=== PATIENT | female | born 1970 | race Caucasian/White ===

== ENCOUNTER 2018-03-09 10:09 | Emergency (ER) | payer OTHER, BC ==
[2018-03-09] MEDS: LORAZEPAM 1 MG TAB PO (11:47)
[2018-03-09] MEDS: predniSONE 20 MG TAB PO (11:47)
== END 2018-03-09 13:45 | disposition home or self-care (01) ==
LOC: FTE 10:09
DX: T78.40XA Allergy, unspecified, initial encounter (principal); F41.9 Anxiety disorder, unspecified
CPT/HCPCS: 99284

== ENCOUNTER 2018-04-11 21:11 | Emergency (ER) | payer OTHER ==
[2018-04-11 23:02] LABS: ADD MAN DIFF? NO
[2018-04-11 23:04] LABS: BASOPHILS % 0.5 % (0.0-2.0); EOSINOPHILS # 0.1 10^3/ul (0.0-0.5); EOSINOPHILS % 2.8 % (0.0-7.0); HEMATOCRIT 35.8 % (37.0-47.0); HEMOGLOBIN 12.8 g/dl (12.0-16.0); LYMPHOCYTES # 1.5 10^3/ul (0.8-2.9); LYMPHOCYTES % 36.7 % (15.0-51.0); MEAN CORPUSCULAR HEMOGLOBIN 34.2 pg (29.0-33.0); MEAN CORPUSCULAR HGB CONC 35.8 g/dl (32.0-37.0); MEAN CORPUSCULAR VOLUME 95.7 fl (82.0-101.0); MEAN PLATELET VOLUME 10.3 fl (7.4-10.4); MONOCYTE # 0.6 10^3/ul (0.3-0.9); MONOCYTES % 14.2 % (0.0-11.0); NEUTROPHIL # 1.8 10^3/ul (1.6-7.5); NEUTROPHILS % 45.5 % (39.0-77.0); PLATELET COUNT 163 10^3/UL (140-415); RED BLOOD COUNT 3.74 10^6/ul (4.20-5.40); RED CELL DISTRIBUTION WIDTH 13.1 % (11.5-14.5)
[2018-04-11 23:21] LABS: ANION GAP 6 (8-16); BLOOD UREA NITROGEN 11 mg/dl (7-20); CALCIUM 8.9 mg/dl (8.4-10.2); CARBON DIOXIDE 29 mmol/L (21-31); CHLORIDE 107 mmol/L (97-110); CREATININE 0.91 mg/dl (0.44-1.00); GLUCOSE 128 mg/dl (70-220); POTASSIUM 3.7 mmol/L (3.5-5.1); SODIUM 138 mmol/L (135-144)
[2018-04-11] MEDS: ASPIRIN 325 MG TAB PO (23:27)
[2018-04-11 23:34] LABS: TROPONIN-I < 0.010 ng/ml (0.000-0.120)
== END 2018-04-12 01:20 | disposition home or self-care (01) ==
LOC: E/R 04-12 01:20
DX: R07.9 Chest pain, unspecified (principal)
CPT/HCPCS: 36415; 71045; 80048; 84484; 85025; 99285-25

== ENCOUNTER 2018-06-16 00:10 | Emergency (ER) | payer OTHER ==
[2018-06-16] MEDS: KETOROLAC 60 MG INJ IM (01:13)
== END 2018-06-16 01:38 | disposition home or self-care (01) ==
LOC: FTE 00:10
DX: S40.011A Contusion of right shoulder, initial encounter (principal); E11.9 Type 2 diabetes mellitus without complications; W23.0XXA Caught, crushed, jammed, or pinched between moving objects, initial encounter; Y92.9 Unspecified place or not applicable
CPT/HCPCS: 96372; 99284-25

== ENCOUNTER 2019-07-07 19:35 | Emergency (ER) | payer OTHER ==
[2019-07-07] MEDS: ONDANSETRON (ODT) 4 MG TAB ODT (21:46)
[2019-07-07] MEDS: KETOROLAC 30 MG INJ IM (21:46)
[2019-07-07] MEDS: DIPHENHYDRAMINE 50 MG INJ IM (21:47)
== END 2019-07-07 22:21 | disposition home or self-care (01) ==
LOC: FTE 19:35
DX: F41.1 Generalized anxiety disorder (principal)
CPT/HCPCS: 81025; 96372; 99284-25